=== PATIENT | female | born 1995 | race Caucasian/White ===

== ENCOUNTER 2017-07-12 19:31 | Emergency (ER) | payer OTHER ==
[~2017-07-12] VITALS: Ht 177.8 cm; Wt 77.1 kg
[2017-07-12 19:44] VITALS: BP 157/97
--- NOTE | 2017-07-12 19:56 | ED SKIN/ALLERGY COMPLAINT ---
History of Present Illness General Chief Complaint: General Adult Stated Complaint: PT HAS FISHING HOOK IN HER FOREHEAD Source: patient, family Exam Limitations: no limitations Vital Signs & Intake/Output Vital Signs & Intake/Output Vital Signs Date Time Temp Pulse Resp B/P B/P Pulse O2 O2 Flow FiO2 Mean Ox Delivery Rate 07/13 1943 98.3 145 16 157/97 99 Room Air ED Intake and Output 07/13 0000 07/12 1200 Intake Total 0 Output Total Balance 0 Intake, Oral 0 Patient 170 lb Weight Weight Estimated Measurement Method Allergies Coded Allergies: No Known Allergies (07/12/17) Triage Note: RECEIVED 21 YO FEMALE WITH FISHING HOOK CAUGHT IN HER FOREHEAD. Triage Nurses Notes Reviewed? yes Onset: Abrupt Duration: minute(s): Timing: single episode today Severity: moderate Location: forehead : No Patient currently breastfeeds: No HPI: 21yo female presents emergency department complaining of a fish hook in forehead. Patient states that she was watching her friends fish and when they were casting the fishing line the hook caught her in the forehead. The hook was new, had not been used to catch fish previously. (Madelaine Ruiz) Past History Travel History Traveled to [place] past 21 day No Medical History Any Pertinent Medical History? none Neurological: NONE EENT: NONE Cardiovascular: NONE Respiratory: NONE Gastrointestinal: NONE Hepatic: NONE Renal: NONE Musculoskeletal: NONE Psychiatric: NONE Endocrine: NONE Blood Disorders: NONE Cancer(s): NONE Surgical History Surgical History: non-contributory Psychosocial History What is your primary language Kyrgyz Tobacco Use: Never used Family History Hx Contributory? No (Madelaine Ruiz) Review of Systems Review of Systems Constitutional: Reports: no symptoms. EENTM: Reports: no symptoms. Respiratory: Reports: no symptoms. Cardiovascular: Reports: no symptoms. GI: Reports: no symptoms. Genitourinary: Reports: no symptoms. Musculoskeletal: Reports: see HPI. Skin: Reports: see HPI. Neurological/Psychological: Reports: no symptoms. Hematologic/Endocrine: Reports: no symptoms. Immunologic/Allergic: Reports: no symptoms. All Other Systems: Reviewed and Negative (Madelaine Ruiz) Physical Exam Physical Exam General Appearance: well developed/nourished, no apparent distress, alert, awake Head: fish hook with three prongs, single prong lodged in mid forehead Eyes: Bilateral: normal appearance, PERRL, EOMI. Ears, Nose, Throat: hearing grossly normal Neck: normal inspection, supple, full range of motion Respiratory: no respiratory distress Back: normal inspection, normal range of motion Extremities: normal inspection, normal range of motion Neurologic/Psych: awake, alert, oriented x 3 Skin: see foreign body above (Madelaine Ruiz) Progress Differential Diagnosis: abscess/cellulitis, foreign body, laceration, contusion, fish hook Plan of Care: Current Medications Sig/Ottoniel Start time Last Medication Dose Stop Time Status Admin Lidocaine 20 ML ONCE ONE 07/13 1999 UNVr (Lidocaine 1%) 07/12 2000 [place] was removed. Patient tolerated procedure well. Patient to begin bacitracin topically. No oral antibiotics as this hook had not been used to catch fish previously. Patient educated on signs and symptoms of skin infection. Patient agrees with plan of care. (Madelaine Ruiz) Departure Departure Disposition: HOME OR SELF CARE Condition: Stable Clinical Impression Primary Impression: Fishing hook foreign body Qualifiers: Encounter type: initial encounter Qualified Code: W45.8XXA - Other foreign body or object entering through skin, initial encounter Additional Instructions: Apply bacitracin daily. Monitor for signs infection such as redness, swelling, increasing pain, any other symptoms and return to the emergency department. Please go over all results of today's visit with your primary care doctor. Contact your primary care doctor to let them know you were here in the emergency room. There may be nonspecific findings which may not be related to your visit today here in the emergency room but may require further evaluation and chronic monitoring by your primary care doctor. If you had a laceration today the chance of foreign body always remains. You should follow-up with your primary care doctor for recheck in 3-5 days for a wound check. If you had an x-ray done there is a chance that a fracture could have been missed on initial read and you should follow-up with your primary care doctor for repeat x-rays if symptoms persist. If your blood pressure was elevated here in the emergency room please have rechecked by [facility] hospital primary care doctor within the next 48. If you were prescribed a narcotic here in the emergency room or any type of controlled substances you're not allowed to drive while taking this medication or operate any type of heavy machinery. Narcotics can make you feel lightheaded dizziness nausea and can cause constipation. You may need to merchandise pickup/receiving associate a stool softener. Thank you for choosing [facility] emergency room. Please return to the emergency room immediately if you have any other concerns worsening of symptoms. Departure Forms: Customer Survey General Discharge Information (Sanjana PAYNE,Madelaine Caldera) PA/[employer] Co-Sign Statement Statement: ED Attending supervision documentation- [] I saw and evaluated the patient. I have also reviewed all the pertinent lab results and diagnostic results. I agree with the findings and the plan of care as documented in the PA's/[employer]'s documentation. [X] I have reviewed the ED Record and agree with the PA's/[employer]'s documentation. [] Additions or exceptions (if any) to the PAs/[employer]'s note and plan are summarized below: [] (Alexander RAMOS,Partha Guardado) Procedures Additional Procedures Additional Procedures: fish hook removal Progress: One percent lidocaine wheel placed locally. Area cleansed with Betadine. Preeti was pushed through skin, then cut off and fish hook removed sucessfully. Patient tolerated procedure well, stitches not indicated. Wound dressed with bacitracin. (Sanjana PAYNE,Madelaine Caldera)
== END 2017-07-12 20:30 ==
LOC: ERH 19:31
DX: S00.85XA Superficial foreign body of other part of head, initial encounter (principal); Y92.9 Unspecified place or not applicable; Y93.9 Activity, unspecified